=== PATIENT | male | born 1960 | race Caucasian/White ===

== ENCOUNTER 2021-06-06 21:24 | Emergency (ER) | payer MEDICARE, SELFPAY ==
[2021-06-06 21:24] VITALS: BP 131/74; PULSE 74; RESP 15; O2SAT 96
[2021-06-06 21:25] VITALS: BP 131/74; PULSE 74; RESP 15; TEMP 37.1; O2SAT 96; BMI 27.3
[2021-06-06 21:28] VITALS: O2SAT 94
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
[2021-06-06] MEDS: HYDROmorphone 0.5 MG/0.5 ML SYRINGE IV (21:45)
[2021-06-06] MEDS: Ondansetron 4 MG/2 ML Vial IV (21:45)
[2021-06-06 23:28] VITALS: BP 113/72; PULSE 73; RESP 16; O2SAT 95
== END 2021-06-06 23:30 | disposition home or self-care (01) ==
PROVIDERS: Emergency Provider Emergency Medicine; PCP Preventive Medicine Occupational Medicine; Visit Provider Emergency Medicine
DX: S20.20XA Contusion of thorax, unspecified, initial encounter (principal); F17.210 Nicotine dependence, cigarettes, uncomplicated; V89.0XXA Person injured in unspecified motor-vehicle accident, nontraffic, initial encounter
CPT/HCPCS: 70450; 71250; 72125; 93005; 96374; 96375; 99285; A4216; J2405